=== PATIENT | male | born 2000 | race Two or more races ===

== ENCOUNTER 2024-05-06 15:17 | Emergency (ER) | payer OTHER ==
[~2024-05-06] VITALS: Ht 177.8 cm; Wt 72.6 kg
[2024-05-06] MEDS ORDERED: KETOROLAC TROMETHAMINE 30 MG VIAL IM STA (16:21)
[2024-05-06] MEDS ORDERED: CEFTRIAXONE SODIUM 2,000 MG VIAL IM STA (16:25)
[2024-05-06 16:48] LABS: HEMATOCRIT 41.9 % (39.0-48.0); MEAN CELL VOLUME 94.5 fL (80.0-100.00); MEAN CORPUSCULAR HEMOGLOBIN 33.8 pg (27.00-32.0); MEAN CORPUSCULAR HGB CONC 35.7 g/dl (32.0-36.0); PLATELET COUNT 331 K/uL (150-450); RED BLOOD COUNT 4.44 M/uL (4.00-6.00); RED CELL DISTRIBUTION WIDTH 12.9 % (11.5-14.5)
[2024-05-06 17:19] LABS: ALBUMIN 4.1 gm/dL (3.4-5.0); BILIRUBIN TOTAL 0.41 mg/dL (0.3-1.2); CALCIUM 9.5 mg/dL (8.5-10.1); CREATININE SERUM 0.67 mg/dL (0.70-1.30); GFR 148.33; GLOBULINA 4.4 G/DL (2.4-3.5); POTASSIUM 4.08 mEq/L (3.5-5.1); TOTAL PROTEIN 8.5 gm/dL (6.4-8.2)
[2024-05-06] MEDS ORDERED: AMOX-CLAV 875-1 EAC1 PO (18:51)
[2024-05-06] MEDS ORDERED: IBU600 MG PO (18:51)
== END 2024-05-06 18:54 | disposition home or self-care (01) ==
LOC: ER 15:17
PROVIDERS: General Practice
DX: K05.219 Aggressive periodontitis, localized, unspecified severity (principal)
CPT/HCPCS: 36415; 70487; Q9965

== ENCOUNTER → 2024-05-06 | Emergency (ER) | payer OTHER ==
[~2024-05-06] MED LIST: AMOX-CLAV 875-1 EAC1 PO; CEFTRIAXONE SODIUM 2,000 MG VIAL ONE; IBU600 MG PO; KETOROLAC TROMETHAMINE 30 MG VIAL ONE
== END | disposition home or self-care (01) ==
LOC: ER 11:36
DX: K05.219 Aggressive periodontitis, localized, unspecified severity (principal)